=== PATIENT | male | born 1995 | race Caucasian/White ===

== ENCOUNTER → 2018-05-24 23:11 | Outpatient (CLI) | payer OTHER, SELFPAY ==
[2018-05-24 23:38] LABS: Thyroid Stim Hormone (TSH) 1.36 uIU/mL (0.358-3.74)
--- OUTSIDE RECORDS SUMMARY | 2018-08-26 10:38 | XMS RPT_ITS ---
:1995 Author Organization OHIP Care Team Providers Name Role Phone Beena Avina ASSISTANT UNIT FORESTER-Leroy Attending Unavailable Beena Avina NP-Leroy Referring Unavailable Beena Avina NP-Leroy Primary Care Unavailable PROBLEMS PROBLEMS DATE TYPE CONDITION / CODE ATTENDING STATUS SOURCE 05/25/2018 Unknown E03.9 - Fabrice, Active [place] Hypothyroidism, Beena TOMAS-Leroy [facility] unspecified / Hospital E03.9(ICD-10) Repository PROCEDURES PROCEDURES No Procedure Records FoundRESULTS RESULTS OFFICE VISIT Observed: 05/24/2018 Status: F Source: [place] 8:58 PM [facility] REPOSITORY [facility] [address] [place] [address] OFFICE VISIT Date of Service: 05/24/18 MR#: [id number] Acct: [id number] Name: WINNIE LIVINGSTON Rep #: [id number] : 1995 Provider: THOM Avina Age/Sex: 22/M Location: [facility] Status: Signed Intake Intake Visit Reasons: tsh dx hypothyroidism HPI HPI (General) HPI HPI: WINNIE LIVINGSTON, is a 22 M who presents to the office today for Assessment AND Plan Orders Orders: Coding Level of Care Code No Charge 05/24/182057 <Electronically signed by Beena CHAUHAN> Date Beena CHAUHAN CC: THYROID STIM HORMONE Collected: 05/24/2018 Status: F Source: [place] (TSH) 5:30 PM [facility] REPOSITORY TYPE CODE TESTS RESULT OUT OF RANGE REFERENCE UNITS LAB L501.9520 0.358-3.74 uIU/mL Normal TSH 1.36 Performed By: #### L501.9520 #### [facility] [address] [place], [address] CNCO Observed: 01/27/2018 Status: COMPLETED Source: [place] 12:00 AM [facility] REPOSITORY Letter Text January 27, 2018 Winnie Livingston [address] [facility] [address] Dear Mr. Livingston, The nurses and staff of J-2 nursing unit at [facility] hope this letter finds you feeling well and progressing in your recovery. It was an honor for us to provide your nursing care. We know that placing our Patients First and maintaining a culture of continuous improvement, each and every day, are essential to the success of our organization. We want to hear from you. If you have any comments, questions or concerns about your hospital stay, please feel free to contact me, Med Yost RN at [phone] or e-mail [email or web address]. Additionally, you will receive a survey in the mail asking you to rate the care you received while in the hospital. Please take the time to complete and send back the survey. I personally review all the results and would appreciate your feedback. Please consider completing this survey for each individual visit. Thank you in advance for your participation and thank you for choosing the [facility] for your healthcare needs. Sincerely, Med Yost RN Nurse Furnace Maintenance 7-2 Cardiology Step-down Unit ALLERGIES ALLERGIES No Allergies Records FoundENCOUNTERS ENCOUNTERS ADMIT/DISCHARGE ACCOUNT ADMITTING ENCOUNTER LOCATION SOURCE NUMBER CLASS 05/24/2018 [id number] Ambulatory [place] 0 [facility] ing:LABSPEC Repository PAYERS PAYERS ENCOUNTER GUARANTOR PAYER SUBSCRIBER SOURCE 05/24/2018 WINNIE [facility] REBECCA [id number] Insurance:HERMINIA ALICIAB: [facility] [id number]: Repository [id number]: [phone] [id number] [phone] () Date:[address], [place] [address]ZH: 05/24/2018 Secondary NOT GIVENUNK [place] Insurance:SELF PAY [facility] Number: Effective Repository Date:2018-05-24
== END ==
PROVIDERS: Family Provider Nurse Practitioner; PCP Nurse Practitioner; Referring Provider Nurse Practitioner; Visit Provider Nurse Practitioner
DX: E03.9 Hypothyroidism, unspecified (principal)
CPT/HCPCS: 84443